=== PATIENT | male | born 1955 | race Caucasian/White ===

== ENCOUNTER → 2017-05-21 | Day surgery (SDC) | payer OTHER ==
[~2017-05-21] VITALS: Ht 177.8 cm; Wt 85.3 kg
[~2017-05-21] MED LIST: 0.9% Sodium Chloride 1,000 ML IV SCH; ASPI-973 PO; ENAL10TA PO; LIP40 PO; METF500T4 PO; Sodium Chloride LOK Flush 10 mL Syringe IV PRN; fentaNYL-PF 50 mCg/mL 2 mL Inj IVPUSH PRN
[2017-05-21 08:04] VITALS: BP 146/97; PULSE 67; RESP 16; O2SAT 97
[2017-05-21 08:52] VITALS: BP 148/97; PULSE 68; RESP 12; O2SAT 98
[2017-05-21 09:00] VITALS: BP 130/80; PULSE 67; RESP 17; O2SAT 96
[2017-05-21 09:10] VITALS: BP 148/95; PULSE 82; RESP 17; O2SAT 96
--- NOTE | 2017-05-21 14:48 | ENDO ---
[address] [address] ENDOSCOPY PROCEDURE PATIENT: RODY BRUNO : 1955 MR#: [id number] ADMIT: 05/21/2017 JOB ID: [id number] DATE: 05/21/2017 PROCEDURE: Colonoscopy. INDICATION: Screening. Patient's ASA classification is one. Mallampati score is two. MEDICATIONS: Versed 3 mg, Fentanyl 75 mcg. INSTRUMENT USED: PCF H 180 AL. PREPARATION QUALITY: Fair. PROCEDURE DETAILS: After informed consent was obtained, the patient was brought into the GI suite, where he was placed on oxygen via nasal cannula and monitored with continuous pulse oximeter, telemetry, and blood pressure monitoring. A time-out was performed, then he was placed in the left lateral decubitus position and medications were administered for sedation. A digital rectal exam was performed, which was unremarkable. The colonoscope was then inserted into the rectum and advanced under direct visualization to the cecum, which was identified by the presence of the ileocecal valve and appendiceal orifice. Once the cecum was reached, the colonoscope was withdrawn back into the rectum as the mucosa and lumen were examined. In the rectum, retroflexion was performed. Following retroflexion, the remaining air in the rectum was suctioned and the procedure was completed. FINDINGS: 1. In the distal descending colon there is a diminutive polyp that was removed with cold biopsy forceps. 2. In the sigmoid colon there was a pedunculated approximately 8 mm polyp that was removed with a hot snare. IMPRESSION: 1. Descending colon polyp. 2. Sigmoid polyp. RECOMMENDATIONS: 1. Avoid NSAIDs and anticoagulants for 72 hours. 2. Repeat colonoscopy pending polyp pathology results. COMPLICATIONS: None. ESTIMATED BLOOD LOSS: Less than 5 mL.
--- NOTE | 2017-05-24 16:15 | PATH ---
SURGICAL PATHOLOGY Attending Physician:Nato Che CASE STATUS: Signed Out PATIENT NAME: RODY BRUNO PID: [id number] : 1955 DATE COLLECTED:05/21/2017 15:19 SPECIMEN: 1: Colon, Polyp 2: Colon, Polyp CLINICAL HISTORY: 1). DESCENDING COLON POLYP X1 2). SIGMOID POLYP X1 FINAL DIAGNOSIS: 1. Descending Colon, Polyp, Biopsy: Tubular adenoma; negative for high-grade dysplasia. 2. Sigmoid Colon, Polyp, Biopsy: Multiple (approximately 3) fragmented portions of tubular adenoma / tubulovillous adenoma. Negative for high-grade dysplasia. ICD10: K63.5 GROSS DESCRIPTION: The specimen is received in two formalin filled containers labeled with the patient's name. 1). The specimen is labeled "descending colon polyp x1" and consists of a 0.3 x 0.2 x 0.2 CM portion of tissue which is entirely submitted in cassette 1A. 2). The specimen is labeled "sigmoid polyp x1" and consists of 3 portions of shoe which aggregate to 0.5 x 0.4 x 0.4 CM. The specimen is entirely submitted in cassette 2A. 05/21/2017AL ICD-9 CODES: CPT CODES: 1: 29746 2: 38756 Electronically Signed Out Angela Bray MD [facility] Pathology [facility] [address], [place] [address] Technical component performed at [facility], [facility] [address], [place], [address]
== END | disposition home or self-care (01) ==
LOC: END 00:03
PROVIDERS: ATTEND Internal Medicine Gastroenterology
DX: Z12.11 Encounter for screening for malignant neoplasm of colon (principal); D12.4 Benign neoplasm of descending colon; D12.5 Benign neoplasm of sigmoid colon; E11.9 Type 2 diabetes mellitus without complications; E78.5 Hyperlipidemia, unspecified; Z79.84 Long term (current) use of oral hypoglycemic drugs; Z79.82 Long term (current) use of aspirin; Z87.891 Personal history of nicotine dependence
CPT/HCPCS: 45380; 45385; G0500; J2250; J3010; J7030